=== PATIENT | male | born 1995 | race Two or more races ===

== ENCOUNTER 2020-01-10 11:33 | Emergency (ER) | payer SELFPAY ==
[~2020-01-10] VITALS: Ht 162.6 cm; Wt 72.6 kg
[~2020-01-10 11:33] MED LIST: ACETAMINOPHEN-1 EAC1 ORAL; IBUPROFEN600 MG ORAL; VIBRAMYCIN100 MG ORAL
[2020-01-10 11:49] VITALS: BP 133/70
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
[2020-01-10] MEDS ORDERED: IBUPROFEN600 M1 ORAL (12:11)
== END 2020-01-10 12:12 | disposition left against medical advice (07) ==
LOC: EMR 11:53
DX: M54.9 Dorsalgia, unspecified (principal)
CPT/HCPCS: 99281